=== PATIENT | male | born 1980 | race Caucasian/White ===

== ENCOUNTER 2022-01-08 13:56 | Observation (INO) ==
[2022-01-08] MEDS ORDERED: SODIUM CHLORIDE 0.9% 1000ML 1,000 ML IV SCH (14:15)
[2022-01-08] MEDS ORDERED: OPTIRAY 320 125ml IV ONE (14:26)
[2022-01-08 14:28] LABS: Basophils # (auto) 0.05 K/uL (0-0.2); Basophils % (auto) 0.6 %; Eosinophils # (auto) 0.21 K/uL (0-0.50); Eosinophils % (auto) 2.6 %; Hematocrit (blood only) 52.1 % (40.1-51.0); Hemoglobin 17.6 g/dl (14.0-18.0); Immature Granulocytes # (auto) 0.05 K/uL (0.00-0.02); Immature Granulocytes % (auto) 0.6 %; Lymphocytes # (auto) 1.36 K/uL (1.2-3.4); Lymphocytes % (auto) 17.1 %; Mean Corpuscular Hemoglobin 29.1 pg (25.0-34.0); Mean Corpuscular Hgb Conc 33.8 g/dL (32.0-36.0); Mean Corpuscular Volume 86.3 fL (80.0-100.0); Mean Platelet Volume 10.1 fL (9.4-12.4); Monocytes # (auto) 0.46 K/uL (0.24-0.82); Monocytes % (auto) 5.8 %; Neutrophils # (auto) 5.81 K/uL (1.4-6.5); Neutrophils % (auto) 73.3 %; Platelet Count 194 K/uL (130-400); RDW Coefficient of Variation 12.3 % (11.5-14.5); RDW Standard Deviation 38.5 fL (36.4-46.3); Red Blood Count 6.04 M/uL (4.63-6.08); White Blood Count 7.94 K/ul (4.8-10.8)
--- NOTE | 2022-01-08 14:44 | CT Scan Report ---
UNENHANCED CT OF THE BRAIN; CT ANGIOGRAM OF THE BRAIN; CT ANGIOGRAM OF THE NECK CLINICAL HISTORY: Strokelike symptoms. Right upper extremity numbness. Right facial tingling and numb ness. COMPARISON STUDY: No priors. TECHNIQUE: Unenhanced axial CT scan of the brain is performed. Subsequently, following the IV adminis tration of 120 of Optiray 320, CT angiogram of the head and neck was performed from the aortic arch t o the vertex. Images are reviewed in the axial, sagittal, and coronal planes. 3-D MIPS images are cre ated and assessed. IV contrast was administered without complication. All measurements were calculate d based on NASCET criteria. A dose lowering technique was utilized adhering to the principles of ALA RA. CT DOSE: 1217.60 mGy.cm FINDINGS: Brain parenchyma: The brain parenchyma is normal in appearance. There is no hemorrhage, mass effect, or evidence of acute territorial ischemia by CT criteria. There is no evidence of enhancing mass lesi on on the angiogram phase images. The ventricles, sulci, and cisterns are normal in configuration. Gr ay-white matter differentiation is preserved. No extra-axial fluid collection is seen. Thoracic aorta: Visualized portions of the thoracic aorta are normal in caliber. The aortic arch demo nstrates standard 3-vessel anatomy. Right carotid arterial system: The right common carotid artery is widely patent, as are the right int ernal and external carotid arteries. Left carotid arterial system: The left common carotid artery is widely patent, as are the left campus recruiting internship al and external carotid arteries. Vertebral arteries: The vertebral arteries are widely patent bilaterally noting left-sided dominance. Subclavian arteries: Widely patent bilaterally. Intracranial vasculature: The internal carotid arteries are patent at the skull base, as are the ante rior and middle cerebral arteries bilaterally. The vertebrobasilar system and posterior cerebral mauricio alvaro are widely patent. The left vertebral artery is dominant. There is origin of the left post erior cerebral artery. There is no aneurysm, high-grade stenosis, or focal vessel cut off seen throug hout the intracranial circulation. Jugular veins: Patent bilaterally. Dural sinuses: Patent. Lung apices: Partially visualized upper lobe lung parenchyma appears clear. Soft tissues: The visualized pharyngeal soft tissues are normal in appearance noting angiographic pha se technique. The oropharyngeal airway appears widely patent. The salivary and thyroid glands are nor mal in appearance. No cervical lymphadenopathy is seen. Skeletal structures: The calvarium appears intact. The cervical spine is within normal limits. No lyt ic or blastic lesion is seen. Orbits: The bony orbits are intact. Orbital contents are normal as visualized. Sinuses and mastoids: There is evidence of previous paranasal sinus surgery. Moderate mucosal thicken ing is noted in the left maxillary antrum. A 2 x 1 cm retention cyst is seen in the right maxillary a ntrum. There is trace mucosal thickening within the ethmoid sinuses. The mastoid air cells are well p neumatized. IMPRESSION: 1. There is no hemorrhage, mass effect, or evidence of acute territorial ischemia by CT criteria. 2. Unremarkable CT angiogram of the brain. 3. Unremarkable CT angiogram of the neck. ACT 112: Negative or not required by law. Electronically signed by: Manny Arenas M.D. 01/08/2022 2:42 PM
[2022-01-08 14:55] LABS: Albumin Globulin Ratio 1.5 (0.9-2); Albumin Level 4.4 gm/dl (3.4-5.0); BUN Creatinine Ratio 15.4 (10-20); Bilirubin,Total 0.5 mg/dl (0.2-1.0); Calcium 9.1 mg/dl (8.5-10.1); Creatinine Clr Calc Pharmacy 110.3 ml/min; Est GFR (African American) 87.4 ml/min; Est GFR (Non-African American) 75.4 ml/min; Globulin 2.9 gm/dl (2.5-4.0); Magnesium 2.1 mg/dl (1.7-2.4); Potassium 3.6 mmol/L (3.5-5.1); Prothrombin Time 10.4 Seconds (9.0-12.0); Total Protein 7.3 gm/dl (6.0-8.3)
[2022-01-08 14:59] LABS: Troponin I High Sensitivity 2.9 pg/ml (0-20)
--- NOTE | 2022-01-08 15:17 | XRay Report ---
XR chest 1V portable CLINICAL HISTORY: Stroke Like Symptoms. Evaluate cardiopulmonary status COMPARISON STUDY: 08/28/2018 TECHNIQUE: 1 view of the chest FINDINGS: Single frontal view of the chest demonstrates the cardiomediastinal silhouette to be within normal li mits. There is a decreased inspiratory effort with elevation of the hemidiaphragms and crowding of th e bronchovascular markings at the lung bases and centrally. The lungs are clear of alveolar opacities . There is no evidence for pleural effusion. There is no evidence for vascular congestion. There is n o acute osseous pathology. IMPRESSION: 1. . There is a decreased inspiratory effort with otherwise no acute chest disease. ACT 112: Negative or not required by law. Electronically signed by: Wayne Thompson M.D. 01/08/2022 3:16 PM
[2022-01-08] MEDS ORDERED: ASPIRIN CHEW 324 MG PO STA (15:27)
[2022-01-08 15:51] LABS: Appearance Urine Clear (Clear); Bilirubin Urine Negative (Negative); Blood Urine Negative (Negative); Color Urine Yellow; Glucose Urine UA Negative (Negative); Ketones Urine Negative (Negative); Leukocyte Esterase Urine Negative (Negative); Nitrite Urine Negative (Negative); Protein Urine Negative (Negative); Specific Gravity Urine > 1.045 (1.000-1.030); Urobilinogen Urine Negative (Negative)
--- NOTE | 2022-01-08 16:48 | History & Physical Report ---
Date of Service January 08, 2022 Assessment & Plan (1) TIA (transient ischemic attack): Plan: - CT head, CTA head and neck without acute abnormalities. - NIH Scale: 1 (decreased sensation) - MRI, routine, tomorrow. - Echo in a.m. - CBC, BMP, HbA1c, lipid panel in a.m. - PT, OT, to evaluate in a.m. - Telemetry for 24 hours, evaluate for episodes of atrial fibrillation. (2) Hypertension: Plan: - Continue losartan. (3) Allergies: Plan: - Continue Salena and Flonase. Plan - Admit to med/tele. - SCDs for DVT ppx. - Full Code. History of Present Illness Chief Complaint: decreased sensation in right arm and right face since 1:30 this afternoon Primary Care Provider: Mason Kapadia MD Deep Montoya is a 42-year-old male with past medical history of significant for hypertension and allergies who presents today with decreased sensation in his right face and arm this afternoon. Patient was at his desk around 1:30 today when he noticed right forearm and hand felt numb but also noticed a tingling sensation. 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 The right arm numbness has gotten better and is now limited to a portion of his forearm and his more so decreased sensation, his facial numbness has waxed and wanes isnce arrival and he describes the feeling like he is coming off novocaine with sensation intact, however it is decreased. He has no other deficits, without visual changes, speech difficulties, motor deficits, chest pain, palpitations, dizziness, headache, nausea, or vomiting. He has a family significant history significant for hemorrhage stroke in his mother in her 70s due to elevated blood pressure and ischemic stroke in an aunt in her 60s, denies personal or family history of coagulopathies. In ED, he is hypertensive, otherwise vital signs within normal limits and stable. Labs largely unremarkable, glucose mildly elevated at 126, alk phos 121. Head CT without hemorrhage, mass-effect or evidence of acute ischemia, CTA of head and neck unremarkable. Allergies Allergy/AdvReac Type Severity Reaction Status Date / Time acetaminophen [From Percocet] AdvReac Hypertension Unverified 01/08/22 15:41 & Tachycardia Fish Containing Products AdvReac Gastrointestinal Unverified 01/08/22 15:41 Upset oxycodone [From Percocet] AdvReac Hypertension Unverified 01/08/22 15:41 & Tachycardia Home Medications Medication Instructions Recorded Confirmed Type fexofenadine 180 mg tablet 180 mg PO DAILY PRN Allergy 08/28/18 01/08/22 History (Salena Allergy) Symptoms fluticasone propionate 50 2 spray intranasal DAILY PRN 08/28/18 01/08/22 History mcg/actuation nasal Congestion spray,suspension (Flonase Allergy Relief) losartan 25 mg tablet 25 mg PO DAILY 01/08/22 01/08/22 History Past Med/Surg History Medical History (Updated 01/08/22 @ 17:54 by Magnus Hill MD) Deviated septum Hypertension Surgical History S/P surgery on nasal septum Family History (Updated 01/08/22 @ 17:35 by Ayse Rhodes PA-C) Mother Stroke hemorrhagic Aunt Stroke ischemic Father Heart disease Other Coronary heart disease Denies family history of Clotting disorder Social History Smoking Status: Former smoker Tobacco Type: Cigarettes Preferred Language: Bolivian Feels Safe at Home: Yes Review of Systems Review of Systems: Constitutional: No fever/chills, weakness, fatigue, myalgias, anorexia, night sweats Eyes: No diplopia, no worsening or blurred vision ENT: normal hearing, no trouble swallowing Respiratory: No cough, sputum, dyspnea at rest or on exertion Cardiovascular: No chest pain, tightness or palpitations Abdomen: No pain, nausea, vomiting, diarrhea or constipation : Denies dysuria, hematuria, increased urgency/frequency, urinary retention Musculoskeletal: No joint pain, calf pain, swelling Neurologic: right forearm and face numbness; No weakness or balance problems Psychiatric: No anxiety or depression Skin: No rash or itch Physical Exam Physical Exam: General: awake, alert, no apparent distress Head: Normocephalic, atraumatic ENT: PERRL, EOMI, no pharyngeal exudate, mucous membranes moist Chest: Clear to auscultation, on room air, no adventitious breath sounds Cardiac: Regular rate and rhythm, no murmur, no JVD, normal peripheral pulses, good capillary refill Abdominal: NABS x 4 quadrants, soft, nontender to palpation, no rebound, guarding or tenderness Extremities: Normal inspection, no peripheral edema or erythema, calfs nontender to palpation Psych: Normal mood and affect Neuro: decreased sensation on right forearm, right cheek and jaw; AAO x 3, strength intact bilaterally and rated 5/5, no motor deficits, speech is clear, no other peripheral sensory deficits Skin: no rash or erythema Results & Data Results & Data ([facility]) Vital Signs (Past 12 Hours) Vital Signs Temp Pulse Resp BP Pulse Ox O2 Del Method 01/08/22 13:59 36.6 C 90 20 165/108 H 96 Room Air Laboratory Results Abnormal lab results 01/08/22 01/08/22 01/08/22 Range/Units 14:17 14:19 14:19 Hct 52.1 H (40.1-51.0) % Immature Gran # (Auto) 0.05 H (0.00-0.02) K/uL Glucose 126 H (70-99(Fasting)) mg/dl POC Glucose 120 H (70-99) mg/dl Alkaline Phosphatase 121 H (34-104) U/L Ur Specific Haworth (1.000-1.030) 01/08/22 Range/Units Unknown Hct (40.1-51.0) % Immature Gran # (Auto) (0.00-0.02) K/uL Glucose (70-99(Fasting)) mg/dl POC Glucose (70-99) mg/dl Alkaline Phosphatase (34-104) U/L Ur Specific Haw[place] > 1.045 H (1.000-1.030) Diagnostic Findings Chest X-Ray 01/08/22 14:07 XR chest 1V portable CLINICAL HISTORY: Stroke Like Symptoms. Evaluate cardiopulmonary status COMPARISON STUDY: 08/28/2018 TECHNIQUE: 1 view of the chest FINDINGS: Single frontal view of the chest demonstrates the cardiomediastinal silhouette to be within normal limits. There is a decreased inspiratory effort with elevation of the hemidiaphragms and crowding of the bronchovascular markings at the lung bases and centrally. The lungs are clear of alveolar opacities. There is no evidence for pleural effusion. There is no evidence for vascular congestion. There is no acute osseous pathology. IMPRESSION: 1. . There is a decreased inspiratory effort with otherwise no acute chest disease. ACT 112: Negative or not required by law. Electronically signed by: Wayne Thompson M.D. 01/08/2022 3:[address] 01/08/22 14:[address] OF THE BRAIN; CT ANGIOGRAM OF THE BRAIN; CT ANGIOGRAM OF THE NECK CLINICAL HISTORY: Strokelike symptoms. Right upper extremity numbness. Right facial tingling and numbness. COMPARISON STUDY: No priors. TECHNIQUE: Unenhanced axial CT scan of the brain is performed. Subsequently, following the IV administration of 120 of Optiray 320, CT angiogram of the head and neck was performed from the aortic arch to the vertex. Images are reviewed in the axial, sagittal, and coronal planes. 3-D MIPS images are created and assessed. IV contrast was administered without complication. All measurements were calculated based on NASCET criteria. A dose lowering technique was utilized adhering to the principles of ALARA. CT DOSE: 1217.60 mGy.cm FINDINGS: Brain parenchyma: The brain parenchyma is normal in appearance. There is no hemorrhage, mass effect, or evidence of acute territorial ischemia by CT criteria. There is no evidence of enhancing mass lesion on the angiogram phase images. The ventricles, sulci, and cisterns are normal in configuration. Reich- white matter differentiation is preserved. No extra-axial fluid collection is seen. Thoracic aorta: Visualized portions of the thoracic aorta are normal in caliber. The aortic arch demonstrates standard 3-vessel anatomy. Right carotid arterial system: The right common carotid artery is widely patent, as are the right internal and external carotid arteries. Left carotid arterial system: The left common carotid artery is widely patent, as are the left internal and external carotid arteries. Vertebral arteries: The vertebral arteries are widely patent bilaterally noting left-sided dominance. Subclavian arteries: Widely patent bilaterally. Intracranial vasculature: The internal carotid arteries are patent at the skull base, as are the anterior and middle cerebral arteries bilaterally. The vertebrobasilar system and posterior cerebral arteries are widely patent. The left vertebral artery is dominant. There is origin of the left posterior cerebral artery. There is no aneurysm, high-grade stenosis, or focal vessel cut off seen throughout the intracranial circulation. Jugular veins: Patent bilaterally. Dural sinuses: Patent. Lung apices: Partially visualized upper lobe lung parenchyma appears clear. Soft tissues: The visualized pharyngeal soft tissues are normal in appearance noting angiographic phase technique. The oropharyngeal airway appears widely patent. The salivary and thyroid glands are normal in appearance. No cervical lymphadenopathy is seen. Skeletal structures: The calvarium appears intact. The cervical spine is within normal limits. No lytic or blastic lesion is seen. Orbits: The bony orbits are intact. Orbital contents are normal as visualized. Sinuses and mastoids: There is evidence of previous paranasal sinus surgery. Moderate mucosal thickening is noted in the left maxillary antrum. A 2 x 1 cm retention cyst is seen in the right maxillary antrum. There is trace mucosal thickening within the ethmoid sinuses. The mastoid air cells are well pneumatized. IMPRESSION: 1. There is no hemorrhage, mass effect, or evidence of acute territorial ischemia by CT criteria. 2. Unremarkable CT angiogram of the brain. 3. Unremarkable CT angiogram of the neck. ACT 112: Negative or not required by law. Electronically signed by: Manny Arenas M.D. 01/08/2022 2:42 PM Head CTA 01/08/22 14:[address] OF THE BRAIN; CT ANGIOGRAM OF THE BRAIN; CT ANGIOGRAM OF THE NECK CLINICAL HISTORY: Strokelike symptoms. Right upper extremity numbness. Right facial tingling and numbness. COMPARISON STUDY: No priors. TECHNIQUE: Unenhanced axial CT scan of the brain is performed. Subsequently, following the IV administration of 120 of Optiray 320, CT angiogram of the head and neck was performed from the aortic arch to the vertex. Images are reviewed in the axial, sagittal, and coronal planes. 3-D MIPS images are created and assessed. IV contrast was administered without complication. All measurements were calculated based on NASCET criteria. A dose lowering technique was utilized adhering to the principles of ALARA. CT DOSE: 1217.60 mGy.cm FINDINGS: Brain parenchyma: The brain parenchyma is normal in appearance. There is no hemo rrhage, mass effect, or evidence of acute territorial ischemia by CT criteria. There is no evidence of enhancing mass lesion on the angiogram phase images. The ventricles, sulci, and cisterns are normal in configuration. Reich-white matter differentiation is preserved. No extra-axial fluid collection is seen. Thoracic aorta: Visualized portions of the thoracic aorta are normal in caliber. The aortic arch demonstrates standard 3-vessel anatomy. Right carotid arterial system: The right common carotid artery is widely patent, as are the right internal and external carotid arteries. Left carotid arterial system: The left common carotid artery is widely patent, as are the left internal and external carotid arteries. Vertebral arteries: The vertebral arteries are widely patent bilaterally noting left-sided dominance. Subclavian arteries: Widely patent bilaterally. Intracranial vasculature: The internal carotid arteries are patent at the skull base, as are the anterior and middle cerebral arteries bilaterally. The vertebrobasilar system and posterior cerebral arteries are widely patent. The left vertebral artery is dominant. There is origin of the left posterior cerebral artery. There is no aneurysm, high-grade stenosis, or focal vessel cut off seen throughout the intracranial circulation. Jugular veins: Patent bilaterally. Dural sinuses: Patent. Lung apices: Partially visualized upper lobe lung parenchyma appears clear. Soft tissues: The visualized pharyngeal soft tissues are normal in appearance noting angiographic phase technique. The oropharyngeal airway appears widely patent. The salivary and thyroid glands are normal in appearance. No cervical lymphadenopathy is seen. Skeletal structures: The calvarium appears intact. The cervical spine is within normal limits. No lytic or blastic lesion is seen. Orbits: The bony orbits are intact. Orbital contents are normal as visualized. Sinuses and mastoids: There is evidence of previous paranasal sinus surgery. Moderate mucosal thickening is noted in the left maxillary antrum. A 2 x 1 cm retention cyst is seen in the right maxillary antrum. There is trace mucosal thickening within the ethmoid sinuses. The mastoid air cells are well pneumatized. IMPRESSION: 1. There is no hemorrhage, mass effect, or evidence of acute territorial ischemia by CT criteria. 2. Unremarkable CT angiogram of the brain. 3. Unremarkable CT angiogram of the neck. ACT 112: Negative or not required by law. Electronically signed by: Manny Arenas M.D. 01/08/2022 2:42 PM Neck CTA 01/08/22 14:[address] OF THE BRAIN; CT ANGIOGRAM OF THE BRAIN; CT ANGIOGRAM OF THE NECK CLINICAL HISTORY: Strokelike symptoms. Right upper extremity numbness. Right facial tingling and numbness. COMPARISON STUDY: No priors. TECHNIQUE: Unenhanced axial CT scan of the brain is performed. Subsequently, following the IV administration of 120 of Optiray 320, CT angiogram of the head and neck was performed from the aortic arch to the vertex. Images are reviewed in the axial, sagittal, and coronal planes. 3-D MIPS images are created and assessed. IV contrast was administered without complication. All measurements were calculated based on NASCET criteria. A dose lowering technique was utilized adhering to the principles of ALARA. CT DOSE: 1217.60 mGy.cm FINDINGS: Brain parenchyma: The brain parenchyma is normal in appearance. There is no hemorrhage, mass effect, or evidence of acute territorial ischemia by CT criteria. There is no evidence of enhancing mass lesion on the angiogram phase images. The ventricles, sulci, and cisterns are normal in configuration. Reich- white matter differentiation is preserved. No extra-axial fluid collection is seen. Thoracic aorta: Visualized portions of the thoracic aorta are normal in caliber. The aortic arch demonstrates standard 3-vessel anatomy. Right carotid arterial system: The right common carotid artery is widely patent, as are the right internal and external carotid arteries. Left carotid arterial system: The left common carotid artery is widely patent, as are the left internal and external carotid arteries. Vertebral arteries: The vertebral arteries are widely patent bilaterally noting left-sided dominance. Subclavian arteries: Widely patent bilaterally. Intracranial vasculature: The internal carotid arteries are patent at the skull base, as are the anterior and middle cerebral arteries bilaterally. The vertebrobasilar system and posterior cerebral arteries are widely patent. The left vertebral artery is dominant. There is origin of the left posterior cerebral artery. There is no aneurysm, high-grade stenosis, or focal vessel cut off seen throughout the intracranial circulation. Jugular veins: Patent bilaterally. Dural sinuses: Patent. Lung apices: Partially visualized upper lobe lung parenchyma appears clear. Soft tissues: The visualized pharyngeal soft tissues are normal in appearance noting angiographic phase technique. The oropharyngeal airway appears widely patent. The salivary and thyroid glands are normal in appearance. No cervical lymphadenopathy is seen. Skeletal structures: The calvarium appears intact. The cervical spine is within normal limits. No lytic or blastic lesion is seen. Orbits: The bony orbits are intact. Orbital contents are normal as visualized. Sinuses and mastoids: There is evidence of previous paranasal sinus surgery. Moderate mucosal thickening is noted in the left maxillary antrum. A 2 x 1 cm retention cyst is seen in the right maxillary antrum. There is trace mucosal thickening within the ethmoid sinuses. The mastoid air cells are well pneumatized. IMPRESSION: 1. There is no hemorrhage, mass effect, or evidence of acute territorial ischemia by CT criteria. 2. Unremarkable CT angiogram of the brain. 3. Unremarkable CT angiogram of the neck. ACT 112: Negative or not required by law. Electronically signed by: Manny Arenas M.D. 01/08/2022 2:42 PM ECG Additional Comments: Poor data quality, interpretation may be adversely affected Normal sinus rhythm Minimal voltage criteria for LVH, may be normal variant ST & T wave abnormality, consider inferior ischemia Abnormal ECG When compared with ECG of 28-AUG-2018 01:29, No significant change was found. Code Status & VTE Plan Code Status Full Code. Supervising Physician Co-Signing Physician Notes Discussed case with FENG, reviewed documentation in patient's chart. Patient is here for new onset right upper extremity and facial numbness. Work-up so far has been negative including a CT/CT angiogram. Plan to place in observation for further work-up for TIA. MRI in the morning of the brain, will add cervical spine as well. 2D echo. Full dose aspirin. Consider neurology evaluation. PG Care Time/CCT Total # of Minutes Spent Total Time Spent with Patient: Total time spent is greater than 50% in coordination of care (as documented) at patient's floor/unit and/or counseling patient: Coding Level of Care Code 65362 Initial Inpt Care Lvl 1 Diagnoses TIA (transient ischemic attack) G45.9 Hypertension I10 Allergies T78.40XA
[2022-01-08 16:54] LABS: iSTAT Potassium 3.6 mmol/L (3.3-5.0)
[2022-01-08 16:55] LABS: iSTAT Creatinine 1.1 mg/dl (0.6-1.3); iSTAT Hemoglobin 18.4 g/dl (14.0-18.0); iSTAT Ionized Calcium 1.09 mmol/l (1.12-1.32)
--- NOTE | 2022-01-08 17:54 | Emergency Department Note ---
Impression & Plan Stroke-like symptoms ED Provider Note INFORMANT: Patient and ED PROVIDER(S): Magnus Hill MD CHIEF COMPLAINT: Right face and arm numbness PLAN: Disposition: Admitted Condition: Good Outpatient prescription management: none Referral: None MEDICAL DECISION MAKING: Patient presented because of right face and arm numbness. This occurred 45 minutes prior to arrival. NIH stroke scale 1. Patient underwent a stroke alert. Consultation was made with Dr. Marcos at [facility]. Patient underwent CT imaging and this was unremarkable. He did not recommend any thrombolytics given the low NIH stroke scale and monitor symptoms. Patient was hydrated. His blood work and ECG were unremarkable. Cardiac monitoring negative. [facility] did recommend admission for stroke work-up given the symptoms. On reassessment the patient had resolution of symptoms. He was given aspirin. Consultation was made with internal medicine. Patient was evaluated in the ER for further management. Triage Nursing notes reviewed and agree them. Vital Signs: reviewed and remarkable for hypertension Differential diagnosis: TIA, CVA infection, dehydration, metabolic abnormality, hypo/hyperglycemia, electrolyte disturbance, anemia, hypoxia, cardiac sources, intracerebral event, toxicologic, neurologic, as well as other pathologies. Diagnostics interpreted by me: EC Lead ECG performed and revealed Normal sinus rhythm at 77, normal [place], QRS normal. No elevation. LVH present. Repolarization abnormality noted. Inferior ST changes. No PACs or PVCs. When compared to 08/28/2018 there is no significant change. Cardiac Monitoring: Cardiac monitoring ordered by me: The patient was placed on continuous cardiac monitoring and observed. It revealed a normal sinus rhythm at 74 beats per minute without ectopy or evidence of dysrhythmia. Imaging studies: CT and CT angiography of the head and neck negative for acute pathology. I refer you to the EMR for further details. HPI: The patient is a 42year old male who presents to the Emergency Room with complaints of right facial and arm numbness. This started 45 minutes prior to arrival and is persisting. No prior history of the same. No trauma. The patient also notes the following associated symptoms, none. The patient has found no relieving factors. Current pain is rated as 0/10. History of hemorrhagic stroke in the family. Pt denies LOC, headache, fevers, chills, diaphoresis, visual changes, neck pain, chest pain, breathing difficulties, nausea, vomiting, abdominal pain, back pain, melena, hematochezia, urinary symptoms, weakness, lymphadenopathy, rash, or other complaints. ROS: See above HPI for pertinent positives & negatives. A total of 10 systems reviewed and were otherwise negative. PAST MEDICAL HISTORY:See Below , hypertension PAST SURGICAL HISTORY:See Below, FAMILY HISTORY:See Below SOCIAL HISTORY:See Below, employed HOME MEDICATIONS:See Below ALLERGIES:See Below VITALS:See Below PHYSICAL EXAMINATION: GENERAL: Awake, alert, well-appearing, in no distress HENT: Normocephalic, atraumatic. Oropharynx unremarkable. EYES: Normal conjunctiva. Sclera non-icteric. PERRLA. EOMI. NECK: Inspection normal. Non-tender. Supple. No nuchal rigidity. FROM. No masses. RESPIRATORY: Clear to auscultation. No wheezes. No rales. Normal respiratory effort. CARDIAC: Normal rate. Normal rhythm. No murmurs. No rubs. Extremities warm and well perfused. Pulses equal. No JVD. GI: Soft, non-distended. No tenderness to palpation. No rebound or guarding. No masses. RECTAL: Deferred. MUSCULOSKELETAL: Atraumatic. Chest examination reveals no tenderness. The back is symmetrical on inspection without obvious abnormality. There is no CVA tenderness to palpation. No joint edema. LOWER EXTREMITIES: Calves are equal size bilaterally and non-tender. No edema. No discoloration. NEURO: Normal sensorium. No sensory or motor deficits noted except for subjective tingling in the right face and arm, specifically in the mandibular division of the right trigeminal nerve. Cranial nerves II through XII intact otherwise. No drift. Normal rapid alternating movements. Speech normal. SKIN: No rash or jaundice noted. Magnus Hill MD Past Med/Surg History Medical History (Updated 01/08/22 @ 17:54 by Magnus Hill MD) Deviated septum Hypertension Surgical History S/P surgery on nasal septum Family History (Updated 01/08/22 @ 17:35 by Ayse Rhodes PA-C) Mother Stroke hemorrhagic Aunt Stroke ischemic Father Heart disease Other Coronary heart disease Denies family history of Clotting disorder Social History Smoking Status: Former smoker Tobacco Type: Cigarettes Hx Alcohol Use: No Hx Substance Use: No Preferred Language: Setswana Communication Ability: Effective Manager Strategy & Account Required: No Beliefs That Will Affect Care: None Current Living Situation: Family Other Information That Helps Us Care for You: No Feels Safe at Home: Yes Safety Concerns: Feels Safe At This Time Assistive Devices: None Allergies Allergies Allergy/AdvReac Type Severity Reaction Status Date / Time acetaminophen [From Percocet] AdvReac Hypertension Unverified 01/08/22 15:41 & Tachycardia Fish Containing Products AdvReac Gastrointestinal Unverified 01/08/22 15:41 Upset oxycodone [From Percocet] AdvReac Hypertension Unverified 01/08/22 15:41 & Tachycardia Home Meds Home Medications Medication Instructions Recorded Confirmed fexofenadine 180 mg tablet 180 mg PO DAILY PRN Allergy 08/28/18 01/08/22 (Salena Allergy) Symptoms fluticasone propionate 50 2 spray intranasal DAILY PRN 08/28/18 01/08/22 mcg/actuation nasal Congestion spray,suspension (Flonase Allergy Relief) losartan 25 mg tablet 25 mg PO DAILY 01/08/22 01/08/22 Results & Data (ED) Vital Signs Vital Signs - 24 hr 01/08/22 13:59 01/08/22 16:00 Temperature 36.6 C Temperature Source Temporal Artery Scan Pulse Rate 90 Pulse Rate [Right Finger] 74 Pulse Rhythm [Right Finger] Regular Pulse Strength [Right Finger] Normal Respiratory Rate 20 16 Respiratory Effort / Characteristics Non-Labored Spontaneous Non-Labored Respiratory Depth Normal Normal Respiratory Pattern Regular Regular Blood Pressure 165/108 H Blood Pressure [Left Arm] 154/99 H Blood Pressure Mean 127 Blood Pressure Mean [Left Arm] 117 Blood Pressure Position Sitting Blood Pressure Position [Left Arm] Lying Pulse Oximetry 96 94 Oxygen Delivery Method Room Air Room Air Sepsis Recent Fever Within 48 Hours No Sepsis New/Unexplained Change in Mental Status N/A Sepsis Action Taken by Nursing No Action Required Laboratory Data Result diagrams: 01/08/22 14:19 01/08/22 14:19 Lab Results 01/08/22 01/08/22 01/08/22 Range/Units 14:17 14:19 14:19 WBC 7.94 (4.8-10.8) K/ul RBC 6.04 (4.63-6.08) M/uL Hgb 17.6 (14.0-18.0) g/dl POC Hgb (14.0-18.0) g/dl Hct 52.1 H (40.1-51.0) % POC Hct (42-52) % MCV 86.3 (80.0-100.0) fL MCH 29.1 (25.0-34.0) pg MCHC 33.8 (32.0-36.0) g/dL RDW Std Deviation 38.5 (36.4-46.3) fL RDW Coeff of Megan 12.3 (11.5-14.5) % Plt Count 194 (130-400) K/uL MPV 10.1 (9.4-12.4) fL Immature Gran % (Auto) 0.6 % Neut % (Auto) 73.3 % Lymph % (Auto) 17.1 % Stewart % (Auto) 5.8 % Eos % (Auto) 2.6 % Baso % (Auto) 0.6 % Neut # (Auto) 5.81 (1.4-6.5) K/uL Lymph # (Auto) 1.36 (1.2-3.4) K/uL Stewart # (Auto) 0.46 (0.24-0.82) K/uL Eos # (Auto) 0.21 (0-0.50) K/uL Baso # (Auto) 0.05 (0-0.2) K/uL Immature Gran # (Auto) 0.05 H (0.00-0.02) K/uL PT (9.0-12.0) Seconds INR (0.9-1.1) APTT (21.0-31.0) Seconds PTT Ratio POC Sodium (135-144) mmol/L Sodium (136-145) mmol/L POC Potassium (3.3-5.0) mmol/L Potassium (3.5-5.1) mmol/L POC Chloride (101-112) mmol/L Chloride (98-107) mmol/L Carbon Dioxide (21-32) mmol/L POC Total CO2 (24-31) mmol/L Anion Gap (3-11) POC Anion Gap (16-25) mmol/L POC BUN (7-18) mg/dl BUN (6-23) mg/dl Creatinine (0.6-1.4) mg/dl POC Creatinine (0.6-1.3) mg/dl Est Cr Clr Drug Dosing ml/min Est GFR ( Amer) ml/min Est GFR (Non-Af Amer) ml/min BUN/Creatinine Ratio (10-20) Glucose (70-99(Fasting)) mg/dl POC Glucose 120 H (70-99) mg/dl POC Glucose (other) (70-99) mg/dl Calcium (8.5-10.1) mg/dl POC Ioniz Calcium Michele (1.12-1.32) mmol/l Magnesium (1.7-2.4) mg/dl Total Bilirubin (0.2-1.0) mg/dl AST (13-39) U/L ALT (7-52) U/L Alkaline Phosphatase (34-104) U/L Troponin I High Sens (0-20) pg/ml Total Protein (6.0-8.3) gm/dl Albumin (3.4-5.0) gm/dl Globulin (2.5-4.0) gm/dl Albumin/Globulin Ratio (0.9-2) SARS-CoV-2, RNA, NAAT (NEGATIVE) Blood Type O Positive Antibody Screen NEGATIVE 01/08/22 01/08/22 01/08/22 Range/Units 14:19 14:19 14:24 WBC (4.8-10.8) K/ul RBC (4.63-6.08) M/uL Hgb (14.0-18.0) g/dl POC Hgb 18.4 H (14.0-18.0) g/dl Hct (40.1-51.0) % POC Hct 54 H (42-52) % MCV (80.0-100.0) fL MCH (25.0-34.0) pg MCHC (32.0-36.0) g/dL RDW Std Deviation (36.4-46.3) fL RDW Coeff of Megan (11.5-14.5) % Plt Count (130-400) K/uL MPV (9.4-12.4) fL Immature Gran % (Auto) % Neut % (Auto) % Lymph % (Auto) % Stewart % (Auto) % Eos % (Auto) % Baso % (Auto) % Neut # (Auto) (1.4-6.5) K/uL Lymph # (Auto) (1.2-3.4) K/uL Stewart # (Auto) (0.24-0.82) K/uL Eos # (Auto) (0-0.50) K/uL Baso # (Auto) (0-0.2) K/uL Immature Gran # (Auto) (0.00-0.02) K/uL PT 10.4 (9.0-12.0) Seconds INR 1.0 (0.9-1.1) APTT 28.0 (21.0-31.0) Seconds PTT Ratio 1.0 POC Sodium 140 (135-144) mmol/L Sodium 138 (136-145) mmol/L POC Potassium 3.6 (3.3-5.0) mmol/L Potassium 3.6 (3.5-5.1) mmol/L POC Chloride 104 (101-112) mmol/L Chloride 104 (98-107) mmol/L Carbon Dioxide 26 (21-32) mmol/L POC Total CO2 25 (24-31) mmol/L Anion Gap 8 (3-11) POC Anion Gap 15.0 L (16-25) mmol/L POC BUN 19 H (7-18) mg/dl BUN 18 (6-23) mg/dl Creatinine 1.17 (0.6-1.4) mg/dl POC Creatinine 1.1 (0.6-1.3) mg/dl Est Cr Clr Drug Dosing 110.3 ml/min Est GFR ( Amer) 87.4 ml/min Est GFR (Non-Af Amer) 75.4 ml/min BUN/Creatinine Ratio 15.4 (10-20) Glucose 126 H (70-99(Fasting)) mg/dl POC Glucose (70-99) mg/dl POC Glucose (other) 130 H (70-99) mg/dl Calcium 9.1 (8.5-10.1) mg/dl POC Ioniz Calcium Michele 1.09 L (1.12-1.32) mmol/l Magnesium 2.1 (1.7-2.4) mg/dl Total Bilirubin 0.5 (0.2-1.0) mg/dl AST 21 (13-39) U/L ALT 29 (7-52) U/L Alkaline Phosphatase 121 H (34-104) U/L Troponin I High Sens 2.9 (0-20) pg/ml Total Protein 7.3 (6.0-8.3) gm/dl Albumin 4.4 (3.4-5.0) gm/dl Globulin 2.9 (2.5-4.0) gm/dl Albumin/Globulin Ratio 1.5 (0.9-2) SARS-CoV-2, RNA, NAAT (NEGATIVE) Blood Type Antibody Screen 01/08/22 Range/Units 16:45 WBC (4.8-10.8) K/ul RBC (4.63-6.08) M/uL Hgb (14.0-18.0) g/dl POC Hgb (14.0-18.0) g/dl Hct (40.1-51.0) % POC Hct (42-52) % MCV (80.0-100.0) fL MCH (25.0-34.0) pg MCHC (32.0-36.0) g/dL RDW Std Deviation (36.4-46.3) fL RDW Coeff of Megan (11.5-14.5) % Plt Count (130-400) K/uL MPV (9.4-12.4) fL Immature Gran % (Auto) % Neut % (Auto) % Lymph % (Auto) % Stewart % (Auto) % Eos % (Auto) % Baso % (Auto) % Neut # (Auto) (1.4-6.5) K/uL Lymph # (Auto) (1.2-3.4) K/uL Stewart # (Auto) (0.24-0.82) K/uL Eos # (Auto) (0-0.50) K/uL Baso # (Auto) (0-0.2) K/uL Immature Gran # (Auto) (0.00-0.02) K/uL PT (9.0-12.0) Seconds INR (0.9-1.1) APTT (21.0-31.0) Seconds PTT Ratio POC Sodium (135-144) mmol/L Sodium (136-145) mmol/L POC Potassium (3.3-5.0) mmol/L Potassium (3.5-5.1) mmol/L POC Chloride (101-112) mmol/L Chloride (98-107) mmol/L Carbon Dioxide (21-32) mmol/L POC Total CO2 (24-31) mmol/L Anion Gap (3-11) POC Anion Gap (16-25) mmol/L POC BUN (7-18) mg/dl BUN (6-23) mg/dl Creatinine (0.6-1.4) mg/dl POC Creatinine (0.6-1.3) mg/dl Est Cr Clr Drug Dosing ml/min Est GFR ( Amer) ml/min Est GFR (Non-Af Amer) ml/min BUN/Creatinine Ratio (10-20) Glucose (70-99(Fasting)) mg/dl POC Glucose (70-99) mg/dl POC Glucose (other) (70-99) mg/dl Calcium (8.5-10.1) mg/dl POC Ioniz Calcium Michele (1.12-1.32) mmol/l Magnesium (1.7-2.4) mg/dl Total Bilirubin (0.2-1.0) mg/dl AST (13-39) U/L ALT (7-52) U/L Alkaline Phosphatase (34-104) U/L Troponin I High Sens (0-20) pg/ml Total Protein (6.0-8.3) gm/dl Albumin (3.4-5.0) gm/dl Globulin (2.5-4.0) gm/dl Albumin/Globulin Ratio (0.9-2) SARS-CoV-2, RNA, NAAT NEGATIVE (NEGATIVE) Blood Type Antibody Screen Administered Medications Discontinued Medications Aspirin (Aspirin Chew 324 Mg) 324 mg PO NOW STA Stop: 01/08/22 15:28 Last Admin: 01/08/22 16:20 Dose: 324 mg Documented By: CONCEPCION Sodium Chloride (Nss 1000ml) 1,000 mls @ 50 mls/hr IV .Q20H ARCHANA Stop: 02/07/22 14:14 Last Infusion: 01/08/22 19:54 Dose: 0 mls/hr Documented By: Admin: 01/08/22 15:12 Dose: 50 mls/hr Documented By: LUIS Ioversol (Optiray 320 125ml) 120 ml IV ONCE ONE Stop: 01/08/22 14:27 Last Admin: 01/08/22 14:26 Dose: 120 ml Documented By: ARNOL Imaging Data Radiologist's Impression: Chest X-Ray 01/08/22 14:07 XR chest 1V portable CLINICAL HISTORY: Stroke Like Symptoms. Evaluate cardiopulmonary status COMPARISON STUDY: 08/28/2018 TECHNIQUE: 1 view of the chest FINDINGS: Single frontal view of the chest demonstrates the cardiomediastinal silhouette to be within normal limits. There is a decreased inspiratory effort with elevat ion of the hemidiaphragms and crowding of the bronchovascular markings at the lung bases and centrally. The lungs are clear of alveolar opacities. There is no evidence for pleural effusion. There is no evidence for vascular congestion. There is no acute osseous pathology. IMPRESSION: 1. . There is a decreased inspiratory effort with otherwise no acute chest di sease. ACT 112: Negative or not required by law. Electronically signed by: Wayne Thompson M.D. 01/08/2022 3:[address] 01/08/22 14:[address] OF THE BRAIN; CT ANGIOGRAM OF THE BRAIN; CT ANGIOGRAM OF THE NECK CLINICAL HISTORY: Strokelike symptoms. Right upper extremity numbness. Right facial tingling and numbness. COMPARISON STUDY: No priors. TECHNIQUE: Unenhanced axial CT scan of the brain is performed. Subsequently, following the IV administration of 120 of Optiray 320, CT angiogram of the head and neck was performed from the aortic arch to the vertex. Images are reviewed in the axial, sagittal, and coronal planes. 3-D MIPS images are created and assessed. IV contrast was administered without complication. All measurements were calculated based on NASCET criteria. A dose lowering technique was utilized adhering to the principles of ALARA. CT DOSE: 1217.60 mGy.cm FINDINGS: Brain parenchyma: The brain parenchyma is normal in appearance. There is no hemorrhage, mass effect, or evidence of acute territorial ischemia by CT criteria. There is no evidence of enhancing mass lesion on the angiogram phase images. The ventricles, sulci, and cisterns are normal in configuration. Reich- white matter differentiation is preserved. No extra-axial fluid collection is seen. Thoracic aorta: Visualized portions of the thoracic aorta are normal in caliber. The aortic arch demonstrates standard 3-vessel anatomy. Right carotid arterial system: The right common carotid artery is widely patent, as are the right internal and external carotid arteries. Left carotid arterial system: The left common carotid artery is widely patent, as are the left internal and external carotid arteries. Vertebral arteries: The vertebral arteries are widely patent bilaterally noting left-sided dominance. Subclavian arteries: Widely patent bilaterally. Intracranial vasculature: The internal carotid arteries are patent at the skull base, as are the anterior and middle cerebral arteries bilaterally. The vertebrobasilar system and posterior cerebral arteries are widely patent. The left vertebral artery is dominant. There is origin of the left posterior cerebral artery. There is no aneurysm, high-grade stenosis, or focal vessel cut off seen throughout the intracranial circulation. Jugular veins: Patent bilaterally. Dural sinuses: Patent. Lung apices: Partially visualized upper lobe lung parenchyma appears clear. Soft tissues: The visualized pharyngeal soft tissues are normal in appearance noting angiographic phase technique. The oropharyngeal airway appears widely patent. The salivary and thyroid glands are normal in appearance. No cervical lymphadenopathy is seen. Skeletal structures: The calvarium appears intact. The cervical spine is within normal limits. No lytic or blastic lesion is seen. Orbits: The bony orbits are intact. Orbital contents are normal as visualized. Sinuses and mastoids: There is evidence of previous paranasal sinus surgery. Moderate mucosal thickening is noted in the left maxillary antrum. A 2 x 1 cm retention cyst is seen in the right maxillary antrum. There is trace mucosal thickening within the ethmoid sinuses. The mastoid air cells are well pneumatized. IMPRESSION: 1. There is no hemorrhage, mass effect, or evidence of acute territorial ischemia by CT criteria. 2. Unremarkable CT angiogram of the brain. 3. Unremarkable CT angiogram of the neck. ACT 112: Negative or not required by law. Electronically signed by: Manny Arenas M.D. 01/08/2022 2:42 PM Head CTA 01/08/22 14:[address] OF THE BRAIN; CT ANGIOGRAM OF THE BRAIN; CT ANGIOGRAM OF THE NECK CLINICAL HISTORY: Strokelike symptoms. Right upper extremity numbness. Right facial tingling and numbness. COMPARISON STUDY: No priors. TECHNIQUE: Unenhanced axial CT scan of the brain is performed. Subsequently, following the IV administration of 120 of Optiray 320, CT angiogram of the head and neck was performed from the aortic arch to the vertex. Images are reviewed in the axial, sagittal, and coronal planes. 3-D MIPS images are created and assessed. IV contrast was administered without complication. All measurements were calculated based on NASCET criteria. A dose lowering technique was utilized adhering to the principles of ALARA. CT DOSE: 1217.60 mGy.cm FINDINGS: Brain parenchyma: The brain parenchyma is normal in appearance. There is no hemorrhage, mass effect, or evidence of acute territorial ischemia by CT criteria. There is no evidence of enhancing mass lesion on the angiogram phase images. The ventricles, sulci, and cisterns are normal in configuration. Reich- white matter differentiation is preserved. No extra-axial fluid collection is seen. Thoracic aorta: Visualized portions of the thoracic aorta are normal in caliber. The aortic arch demonstrates standard 3-vessel anatomy. Right carotid arterial system: The right common carotid artery is widely patent, as are the right internal and external carotid arteries. Left carotid arterial system: The left common carotid artery is widely patent, as are the left internal and external carotid arteries. Vertebral arteries: The vertebral arteries are widely patent bilaterally noting left-sided dominance. Subclavian arteries: Widely patent bilaterally. Intracranial vasculature: The internal carotid arteries are patent at the skull base, as are the anterior and middle cerebral arteries bilaterally. The vertebrobasilar system and posterior cerebral arteries are widely patent. The left vertebral artery is dominant. There is origin of the left posterior cerebral artery. There is no aneurysm, high-grade stenosis, or focal vessel cut off seen throughout the intracranial circulation. Jugular veins: Patent bilaterally. Dural sinuses: Patent. Lung apices: Partially visualized upper lobe lung parenchyma appears clear. Soft tissues: The visualized pharyngeal soft tissues are normal in appearance noting angiographic phase technique. The oropharyngeal airway appears widely patent. The salivary and thyroid glands are normal in appearance. No cervical lymphadenopathy is seen. Skeletal structures: The calvarium appears intact. The cervical spine is within normal limits. No lytic or blastic lesion is seen. Orbits: The bony orbits are intact. Orbital contents are normal as visualized. Sinuses and mastoids: There is evidence of previous paranasal sinus surgery. Moderate mucosal thickening is noted in the left maxillary antrum. A 2 x 1 cm retention cyst is seen in the right maxillary antrum. There is trace mucosal thickening within the ethmoid sinuses. The mastoid air cells are well pneumatized. IMPRESSION: 1. There is no hemorrhage, mass effect, or evidence of acute territorial ischemia by CT criteria. 2. Unremarkable CT angiogram of the brain. 3. Unremarkable CT angiogram of the neck. ACT 112: Negative or not required by law. Electronically signed by: Manny Arenas M.D. 01/08/2022 2:42 PM Neck CTA 01/08/22 14:[address] OF THE BRAIN; CT ANGIOGRAM OF THE BRAIN; CT ANGIOGRAM OF THE NECK CLINICAL HISTORY: Strokelike symptoms. Right upper extremity numbness. Right facial tingling and numbness. COMPARISON STUDY: No priors. TECHNIQUE: Unenhanced axial CT scan of the brain is performed. Subsequently, following the IV administration of 120 of Optiray 320, CT angiogram of the head and neck was performed from the aortic arch to the vertex. Images are reviewed in the axial, sagittal, and coronal planes. 3-D MIPS images are created and assessed. IV contrast was administered without complication. All measurements were calculated based on NASCET criteria. A dose lowering technique was utilized adhering to the principles of ALARA. CT DOSE: 1217.60 mGy.cm FINDINGS: Brain parenchyma: The brain parenchyma is normal in appearance. There is no hemorrhage, mass effect, or evidence of acute territorial ischemia by CT criteria. There is no evidence of enhancing mass lesion on the angiogram phase images. The ventricles, sulci, and cisterns are normal in configuration. Reich- white matter differentiation is preserved. No extra-axial fluid collection is seen. Thoracic aorta: Visualized portions of the thoracic aorta are normal in caliber. The aortic arch demonstrates standard 3-vessel anatomy. Right carotid arterial system: The right common carotid artery is widely patent, as are the right internal and external carotid arteries. Left carotid arterial system: The left common carotid artery is widely patent, as are the left internal and external carotid arteries. Vertebral arteries: The vertebral arteries are widely patent bilaterally noting left-sided dominance. Subclavian arteries: Widely patent bilaterally. Intracranial vasculature: The internal carotid arteries are patent at the skull base, as are the anterior and middle cerebral arteries bilaterally. The vertebrobasilar system and posterior cerebral arteries are widely patent. The l eft vertebral artery is dominant. There is origin of the left posterior cerebral artery. There is no aneurysm, high-grade stenosis, or focal vessel cut off seen throughout the intracranial circulation. Jugular veins: Patent bilaterally. Dural sinuses: Patent. Lung apices: Partially visualized upper lobe lung parenchyma appears clear. Soft tissues: The visualized pharyngeal soft tissues are normal in appearance noting angiographic phase technique. The oropharyngeal airway appears widely patent. The salivary and thyroid glands are normal in appearance. No cervical lymphadenopathy is seen. Skeletal structures: The calvarium appears intact. The cervical spine is within normal limits. No lytic or blastic lesion is seen. Orbits: The bony orbits are intact. Orbital contents are normal as visualized. Sinuses and mastoids: There is evidence of previous paranasal sinus surgery. Moderate mucosal thickening is noted in the left maxillary antrum. A 2 x 1 cm retention cyst is seen in the right maxillary antrum. There is trace mucosal thickening within the ethmoid sinuses. The mastoid air cells are well pneuma tized. IMPRESSION: 1. There is no hemorrhage, mass effect, or evidence of acute territorial ischemia by CT criteria. 2. Unremarkable CT angiogram of the brain. 3. Unremarkable CT angiogram of the neck. ACT 112: Negative or not required by law. Electronically signed by: Manny Arenas M.D. 01/08/2022 2:42 PM Discharge Plan Visit Data Chief Complaint: Neuro Symptoms/Deficit Stated Complaint: NUMBNESS DOWN FACE AND RT ARM ED Provider: Magnus Hill Discharge Problem: Stroke-like symptoms Patient Disposition: Admitted As Inpatient Discharge Instructions Interventions: ED Discharge Assessment Last Done: 01/08/22 17:50
[2022-01-08] MEDS ORDERED: PHARMACIST DISCHARGE MED REC CONSULT PRN (18:31)
[2022-01-08] MEDS ORDERED: FLUTICASONE PROPIONATE NA SPR 16 GM BTL PRN (18:31)
[2022-01-08] MEDS ORDERED: FEXOFENADINE HCL 180 MG TAB PO PRN (18:31)
--- NOTE | 2022-01-08 21:18 | Magnetic Resonance Report ---
MRI OF THE BRAIN WITHOUT IV CONTRAST CLINICAL HISTORY: Right upper extremity and facial numbness. COMPARISON STUDY: CT of the brain performed the same day 01/08/2022. TECHNIQUE: MRI of the brain was performed utilizing various T1 and T2-weighted sequences in the axial , sagittal, and coronal planes. IV contrast was not administered for this examination. FINDINGS: Brain parenchyma: The brain parenchyma is normal in appearance. There is no hemorrhage or mass effect . There is no restricted diffusion to suggest acute ischemia. Reich-white matter differentiation is pr eserved. No extra-axial fluid collection is seen. The cerebellar tonsils are normal in configuration. Ventricles, sulci, and cisterns: Normal in configuration. Pituitary and sella: Unremarkable. Intracranial vasculature: Normal flow voids are maintained at the skull base. Orbits: The bony orbits are grossly intact. Orbital contents are normal in appearance. Sinuses and mastoids: Moderate mucosal thickening is noted in the left maxillary sinus. Mild because of thickening and retention cysts are noted in the right maxillary antrum. There is mild mucosal thic kening within the ethmoid sinuses. The mastoid air cells are clear. Calvarium: Unremarkable. Cervical cord: Partially visualized cervical spinal cord is normal in morphology and signal intensity . IMPRESSION: No acute intracranial abnormality. ACT 112: Negative or not required by law. Electronically signed by: Manny Arenas M.D. 01/08/2022 9:15 PM
[2022-01-09 07:03] LABS: Basophils # (auto) 0.04 K/uL (0-0.2); Basophils % (auto) 0.7 %; Eosinophils # (auto) 0.25 K/uL (0-0.50); Eosinophils % (auto) 4.3 %; Hematocrit (blood only) 48.9 % (40.1-51.0); Hemoglobin 16.7 g/dl (14.0-18.0); Immature Granulocytes # (auto) 0.05 K/uL (0.00-0.02); Immature Granulocytes % (auto) 0.9 %; Lymphocytes # (auto) 1.46 K/uL (1.2-3.4); Mean Corpuscular Hemoglobin 29.4 pg (25.0-34.0); Mean Corpuscular Hgb Conc 34.2 g/dL (32.0-36.0); Mean Corpuscular Volume 86.1 fL (80.0-100.0); Mean Platelet Volume 10.3 fL (9.4-12.4); Monocytes # (auto) 0.46 K/uL (0.24-0.82); Monocytes % (auto) 7.9 %; Neutrophils # (auto) 3.57 K/uL (1.4-6.5); Neutrophils % (auto) 61.2 %; Platelet Count 176 K/uL (130-400); RDW Coefficient of Variation 12.3 % (11.5-14.5); RDW Standard Deviation 38.6 fL (36.4-46.3); Red Blood Count 5.68 M/uL (4.63-6.08); White Blood Count 5.83 K/ul (4.8-10.8)
[2022-01-09 07:36] LABS: BUN Creatinine Ratio 13.8 (10-20); Calcium 8.7 mg/dl (8.5-10.1); Chol HDL Ratio 4.6 (0-5); Creatinine Clr Calc Pharmacy 111.3 ml/min; Est GFR (African American) 88.3 ml/min; Est GFR (Non-African American) 76.2 ml/min; Potassium 3.8 mmol/L (3.5-5.1)
[2022-01-09 07:49] LABS: Estimated Average Glucose 111 mg/dl; Hemoglobin A1C 5.5 % (4.5-5.6)
--- NOTE | 2022-01-09 08:04 | Hospitalist Progress Note ---
Date of Service January 09, 2022 Assessment & Plan Admission and Anticipated Discharge Date Admission Date: January 08, 2022 Results & Data Results & Data ([facility]) Vital Signs (Past 12 Hours) Vital Signs Temp Pulse Pulse Resp BP BP Pulse Ox 01/08/22 23:00 63 01/09/22 02:54 36.5 C 66 18 117/74 94 01/08/22 22:24 36.8 C 63 18 144/81 H 96 O2 Del Method 01/08/22 23:00 01/09/22 02:54 Room Air 01/08/22 22:24 Room Air
[2022-01-09] MEDS ORDERED: LOSARTAN POTASSIUM 25 MG TAB PO SCH (09:00)
[2022-01-09] MEDS ORDERED: ASPIRIN 81 MG ECTAB PO SCH (09:00)
--- NOTE | 2022-01-09 09:12 | Magnetic Resonance Report ---
MRI OF THE CERVICAL SPINE WITHOUT IV CONTRAST CLINICAL HISTORY: Facial numbness. COMPARISON STUDY: CT angiogram of the neck dated 01/08/2022. TECHNIQUE: MRI of the cervical spine is performed utilizing various T1 and T2-weighted sequences in t he axial and sagittal planes. IV contrast was not administered for this examination. The examination is degraded by motion artifact. FINDINGS: Cervical spine: Vertebral body height and alignment are maintained throughout the cervical spine. The re is straightening of the cervical lordosis with mild reversal centered at C5. The atlantodental art iculation is maintained. The spinous processes appear intact. Minimal degenerative endplate changes n oted at C6-C7. Intervertebral discs: Mild disc desiccation is seen throughout the cervical spine. The disc spaces ar e preserved. Spinal cord: The cervical spinal cord is normal in morphology and signal intensity. C2-C3: Mild facet arthropathy is of no consequence. The central canal and neural foramina are patent. C3-C4: Uncovertebral and facet arthropathy contribute to mild bilateral neural foraminal stenosis. C4-C5: Mild facet arthropathy is of no consequence. C5-C6: A small posterior disc osteophyte complex is of no consequence. Uncovertebral and facet arthro angy contribute to mild bilateral neural foraminal stenosis. C6-C7: A posterior disc osteophyte complex is of no consequence. Uncovertebral and facet arthropathy contribute to mild left greater than right neural foraminal stenosis. C7-T1: Unremarkable. Soft tissues: The prevertebral and paraspinous soft tissues are within normal limits. Brain parenchyma: The visualized brain parenchyma at the skull base is normal in appearance. Mucosal thickening is noted within the maxillary sinuses. IMPRESSION: 1. The cervical spinal cord is normal in morphology and signal intensity. 2. Minimal spondylotic change as above with no significant acquired compromise of the central canal. Dictated: 01/09/2022 8:17 AM Transcribed: 01/09/2022 8:43 AM Ghazala [id number] OLEGARIO_Jose Electronically signed by: Manny Arenas M.D. 01/09/2022 9:11 AM
[2022-01-09] MEDS ORDERED: STROKE PATIENT DISCHARGE STA (12:21)
--- NOTE | 2022-01-09 12:25 | Discharge Summary ---
Date of Service January 09, 2022 Admission HPI Per Admitting Provider Deep Montoya is a 42-year-old male with past medical history of significant for hypertension and allergies who presents today with decreased sensation in his right face and arm this afternoon. Patient was at his desk around 1:30 today when he noticed right forearm and hand felt numb but also noticed a tingling sensation. 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 The right arm numbness has gotten better and is now limited to a portion of his forearm and his more so decreased sensation, his facial numbness has waxed and wanes isnce arrival and he describes the feeling like he is coming off novocaine with sensation intact, however it is decreased. He has no other deficits, without visual changes, speech difficulties, motor deficits, chest pain, palpitations, dizziness, headache, nausea, or vomiting. He has a family significant history significant for hemorrhage stroke in his mother in her 70s due to elevated blood pressure and ischemic stroke in an aunt in her 60s, denies personal or family history of coagulopathies. In ED, he is hypertensive, otherwise vital signs within normal limits and stable. Labs largely unremarkable, glucose mildly elevated at 126, alk phos 121. Head CT without hemorrhage, mass-effect or evidence of acute ischemia, CTA of head and neck unremarkable. Admission Exam Per Admitting Provider General: awake, alert, no apparent distress Head: Normocephalic, atraumatic ENT: PERRL, EOMI, no pharyngeal exudate, mucous membranes moist Chest: Clear to auscultation, on room air, no adventitious breath sounds Cardiac: Regular rate and rhythm, no murmur, no JVD, normal peripheral pulses, good capillary refill Abdominal: NABS x 4 quadrants, soft, nontender to palpation, no rebound, guarding or tenderness Extremities: Normal inspection, no peripheral edema or erythema, calfs nontender to palpation Psych: Normal mood and affect Neuro: decreased sensation on right forearm, right cheek and jaw; AAO x 3, stre ngth intact bilaterally and rated 5/5, no motor deficits, speech is clear, no other peripheral sensory deficits Skin: no rash or erythema Principal Diagnosis TIA Discharge Exam Constitutional WD/WN, vitals as above Eyes PERRL, conjunctivae normal, anicteric sclerae ENMT external ear and nose normal, oropharynx normal Neck trachea midline, no thyromegaly Respiratory normal respiratory effort, lungs clear to auscultation Cardiovascular RRR, no murmur, no edema Chest (Breasts) Chest: normal inspection of chest Gastrointestinal (Abdomen) normal bowel sounds, soft, nontender, no hepatosplenomegaly Musculoskeletal no cyanosis or clubbing, extremities motor strength 5/5 Skin no rashes, warm and dry Neurologic CN's II-XI intact bilaterally Discharge Data Allergies Allergy/AdvReac Type Severity Reaction Status Date / Time acetaminophen [From Percocet] AdvReac Hypertension Unverified 01/08/22 15:41 & Tachycardia Fish Containing Products AdvReac Gastrointestinal Unverified 01/08/22 15:41 Upset oxycodone [From Percocet] AdvReac Hypertension Unverified 01/08/22 15:41 & Tachycardia Ordered Studies 01/08/22 14:07 CT angio head w con Stat CT angio neck with con Stat CT head/brain wo con Stat 01/08/22 18:31 MR brain wo con Routine 01/08/22 18:48 MRI Cervical [MR cervical spine wo con] Routine Hospital Course (1) Hypertension: 42-year-old male with past medical history of significant for hypertension and allergies who presents today with decreased sensation in his right face and arm. -Started Aspirin 81mg daily -Started Atorvastatin 40mg daily -referral to Neurology (1) TIA (transient ischemic attack): CT head, CTA head and neck without acute abnormalities. NIH Scale: 1 (decreased sensation). MRI brain and cervical spine without acute abnormalities. Echo without acute abnormalities. CBC, BMP, HbA1c, lipid panel wnl. Telemetry sinus rhythm. Patient started on Aspirin 81mg daily and Atorvastatin 40mg daily. Patient understands while we are treating him as a TIA patient, there is a possibility this may be an atypical migraine, he may not need to be on these medications forever. Reviewed patient daily lifestyle, appropriate. Arranged followup with Neurology for TIA v. Atypical Migraine. (2) Hypertension: Continue losartan. Patient to monitor BP at home. (3) Allergies: Continue Salena and Flonase. (2) TIA (transient ischemic attack): Total Time Total Time Spent Total Time Spent (In Minutes): >30 Discharge Plan Discharge Items Patient Disposition: Home - Self-Care Reason For Visit: RIGHT FACE/ARM NUMBNESS Discharge Diagnosis: TIA Activity: Resume your previous activity Non-emergency contact: Primary Care Provider Call non-emergency contact if: you have any medication questions, your symptoms worsen and you have a fever Follow-up/Referrals: Baldomero Hyman MD [Physician] - 02/01/22 2:30 pm (outpatient neuro establish care for TIA-like symptoms in the hospital. ideally, see within 1 month. Appt with Kesha Osborne PA-C) Mason Kapadia MD [Primary Care Provider] - 01/16/22 10:50 am (hospital discharge f/u within 1 week) Diet: Regular Addtl Attending Provider Instructions: You were admitted to the hospital for numbness tingling of your right face and arm. Upon review of your imaging and heart monitoring, we did not find any acute stroke, heart defect, or arrhythmia. It is likely you had a TIA, or Transient Ischemic Attack, which is a brain clot that was small enough for your body to remove on its own. To prevent reoccurrence of this incident we will start you on daily baby aspirin and atorvastatin. Lyme testing is pending. The best way to prevent further strokes is to ensure that your current medical conditions are well under control, and to modify your daily lifestyle. Please continue to have close follow up with your PCP to manage your blood pressure. We recommend you get 150min of moderate intensity exercise per week. For your diet we recommend foods that are low in salt or fat. A discharge summary will be sent to your primary care physician to ensure continuity of care. Please bring this discharge summary with you to your next office appointment so that your provider can review it at that time. Follow-up appointments: Make a follow-up appointment with your PCP within the next week. It is very important that you follow up with them shortly after discharge from the hospital. Keep all your follow-up appointments as already scheduled. If you cannot make an appointment, notify your provider. Follow up with neurology. They will decide if additional workup is needed and whether to continue the baby aspirin and statin. Medications: Your medication list has been reviewed and reconciled upon discharge to ensure accuracy and continuity of care. An updated list of all your medications is included with your hospital discharge paperwork. Please review this list closely, and make note of any changes. * Take Aspirin 81mg one tablet daily. Start the first dose on 01/10. * Atorvastatin 40mg once a day. Can start first dose night of 01/09 or morning of 01/10. Take your medications as instructed; do not skip a dose of your medicines. Make sure all of your doctors know every medicine you are taking (including gzyu-sfj-znayuaf medicines, vitamins, and supplements). Call your primary care provider before taking any new medicines (including nirk-jla-zlerjhl medicines, vitamins, and supplements), because some of these may interact with your current medications, or may make your symptoms worse. Tell your primary care provider if you cannot afford your medications. CONTACT YOUR PRIMARY CARE PROVIDER if you experience any of the following: Numbness tingling of half your body Loss of strength in half your body, difficulty breathing Difficulty following your treatment plan, or difficulty taking medications CALL 911 OR GO TO THE EMERGENCY DEPARTMENT if you experience any of the following: Sudden, severe abdominal pain or nausea/vomiting Severe chest pain, or chest pain that radiates (moves) to your jaw or arm Sudden, severe shortness of breath or difficulty breathing Thank you for allowing us to participate in your care. Pending Studies at Discharge: Yes Studies:: Lyme testing Stand-Alone Forms: Medications to Prevent Stroke, My [facility]uin, Smoking Cessation Medications and DC Order Prescriptions: New aspirin 81 mg Tablet,Delayed Release (Dr/Ec) 81 mg PO QAM 30 Days Qty: 30 0RF atorvastatin 40 mg tablet 40 mg PO HS Qty: 30 2RF Continued fluticasone propionate [Flonase Allergy Relief] 50 mcg/actuation [place],Suspension 2 spray INTRANASAL DAILY PRN (Reason: Congestion) fexofenadine [Salena Allergy] 180 mg Tablet 180 mg PO DAILY PRN (Reason: Allergy Symptoms) losartan 25 mg tablet 25 mg PO DAILY Discharge Orders: Discharge Order (Routine); Ordered 01/09/22 Ordered By: Ludmila Wilson/Other Patient Handouts: Hypertension Stroke Link, ED TIA: Transient Ischemic Attack Admission Data Admit Date/Time: 01/08/22 16:54 Attending Provider: Jan Lucero Admit Provider: Nick Garcia Primary Care Provider: Mason Kapadia Other Interventions: Discharge Summary Assessment (RN) Last Done: 01/09/22 12:34 Supervising Physician Co-Signing Physician Notes I personally examined the patient and verified all spence points of history and exam, discussed case, and agree with decision making with Dr Guerrero feeling all better no further numbness/weakness. Came on and went away spontaneously. No weakness. No facial droop or drooling whenever it happened. does note some work stress, the patient notes this is not really that big of a deal. Exercises regularly. Does not follow blood pressure regularly at home, but she is does have a cuff. Vitals noted, in general he is awake and alert pleasant no distress. HEENT normocephalic atraumatic mucous membranes moist. Breathing unlabored no accessory muscle use good effort. Skin shows no rashes no pallor or icterus. Neuro without focal deficits. Transient focal numbnessparesthesias are concerning for a TIA, although his risks are not overwhelming given his young age. At this point in time, obligated to manage as though it was a TIA, but I do wonder about atypical migraine pathophysiology (he did note a vague amount of head pressure that he related to change of barometric pressure earlier in the day, although certainly nothing truly consistent with a headache). For now, aspirin and statin, home blood pressure monitoring, close outpatient follow-up, outpatient neurology follow-up. Over the next few months if it becomes more clear with telltale signs that this was a typical migraine pathophysiology, or possibly a manifestation of stress/anxiety if his 's assessment of his work situation is more correct than his own, then we may be able to stop the aspirin and statin. At the same time if there is no clear reassuring findings, or if his home blood pressure monitoring shows him to be running uncontrolledand thereby raising his risk for truly having vascular diseasethen would continue the aspirin and statin. Otherwise safe for home. Otherwise as above. Resident Activity Tracking Resident Involvement: Resident Care Provided Care Provided: Adult Hospital Medicine
[2022-01-09 13:30] LABS: Lyme Ab IgG w/WB Rflx Negative (Negative); Lyme Ab IgM w/WB Rflx Negative (Negative)
--- NOTE | 2022-01-09 13:39 | Pharmacy Report ---
- Date of Service January 09, 2022 - Pharmacy CVA/TIA Medication Review Medications to Prevent Stroke handout has been added to the patients discharge packet. Antiplatelet(s) * Aspirin 81 mg Cholesterol * High intensity statin: atorvastatin 40 mg daily Therapeutic Anticoagulation * No history of Afib/Aflutter noted Type 2 Diabetes * Not diabetic per HbA1c * New medications aspirin/atorvastatin discussed with patient at time of discharge.
--- NOTE | 2022-01-09 16:15 | XCELERA ---
[id number]
--- NOTE | 2022-01-09 17:00 | Electrocardiogram Report ---
Test Reason : Blood Pressure : / mmHG Vent. Rate : 077 BPM Atrial Rate : 077 BPM P-R Int : 132 ms QRS Dur : 094 ms QT Int : 388 ms P-R-T Axes : 046 058 018 degrees QTc Int : 439 ms Poor data quality, interpretation may be adversely affected Normal sinus rhythm Minimal voltage criteria for LVH, may be normal variant Abnormal ECG When compared with ECG of 28-AUG-2018 01:29, No significant change was found Confirmed by Chivo Leong ([id number]) on 01/09/2022 5:00:07 PM Referred By: REFERRED SELF Confirmed By:Chivo Leong
--- NOTE | 2022-01-09 17:15 | Billing Data ---
Date of Service January 09, 2022 Coding Level of Care Code D/C DAY MANAGEMENT >30 MINS
== END 2022-01-09 13:46 | disposition home or self-care (01) | DRG 69 ==
LOC: ED 13:56 → INTOOBSV 16:54 → 2N 16:54 → SUATTDRO 16:54 → 2N 17:50